=== PATIENT | female | born 1995 | race Caucasian/White ===

== ENCOUNTER → 2022-01-04 | Outpatient (CLI) | payer BC | LOC: KOH-I 12:55 | DX: M79.671 Pain in right foot (principal); M84.374A Stress fracture, right foot, initial encounter for fracture | CPT/HCPCS: 73630 ==

== ENCOUNTER → 2022-01-30 | Outpatient (CLI) | payer BC | LOC: KOH-I 14:13 | DX: S92.351D Displaced fracture of fifth metatarsal bone, right foot, subsequent encounter for fracture with routine healing (principal) | CPT/HCPCS: 73630 ==